=== PATIENT | female | born 1940 | race Caucasian/White ===

== ENCOUNTER 2018-04-12 09:01 | Inpatient (IN) ==
[2018-04-12] MEDS ORDERED: Metoprolol Tartrate 25 MG Tablet PO ONE (10:00)
[2018-04-12] MEDS ORDERED: Chlorhexidine Gluconate 2% 1 Pack (2 Cloths) TOPICAL ONE (10:00)
[2018-04-12] MEDS ORDERED: ceFAZolin 2 GM Premix Inj 2 GM/50 ML PIGGYBACK IV.SIG SCH (10:00)
[2018-04-12] MEDS ORDERED: Chlorhexidine 4% Topical 120 APPLIC/120 ML Bottle TOPICAL SCH (10:00)
[2018-04-12] MEDS ORDERED: Vancomycin Inj 1,000 MG in Sodium Chlor 0.9% Inj 250 ML IV.SIG SCH (10:00)
[2018-04-12] MEDS ORDERED: Sodium Chlor 0.9% Inj 500 ML IV.CONT ONE (10:00)
[2018-04-12] MEDS ORDERED: Sodium Chlor 0.9% Inj 40 ML, Bupivacaine Liposo PF 1.3% Inj 20 ML, Bupivacaine/Epi PF 0... P-ARTICULR SCH ×3 (10:30)
[2018-04-12] MEDS ORDERED: SODIUM CHLOR 0.9% IV.SIG SCH (11:00)
[2018-04-12] MEDS ORDERED: TRANEXAMIC ACID IV.SIG SCH (11:00)
[2018-04-12] MEDS ORDERED: Bupivacaine 0.5% Inj 50 ML MDV Vial ONE (11:05)
[2018-04-12] MEDS ORDERED: ALPRAZolam 0.25 MG Tablet PO PRN (12:25)
[2018-04-12] MEDS ORDERED: Bisacodyl 10 MG Supp RECTAL PRN (12:28)
[2018-04-12] MEDS ORDERED: Post-op Orders (for Pharmacy) OTHER STA (12:28)
[2018-04-12] MEDS ORDERED: Morphine Inj 4 MG/ML Vial IV.PUSH PRN (12:28)
[2018-04-12] MEDS ORDERED: Temazepam 15 MG Capsule PO PRN (12:28)
--- NOTE | 2018-04-12 14:36 | P.OP ---
- Preoperative Diagnosis (1) Osteoarthritis of left knee - Postoperative Diagnosis (1) Osteoarthritis of left knee Date of procedure: 04/12/18 Procedure: Left total knee arthroplasty Anesthesia: local, spinal Surgeon: Herb Mcgee MD Group Product Manager: Olive Driscoll PA-C Operation and Findings: EBL: 100 cc INDICATION: This patient presents with long-standing arthritis of the knee. Attachment record documents conservative measures. The patient now presents for surgical treatment. NOTE: Olive Driscoll PA-C was present for the entire surgical procedure as my office clerk assistant. In my medical opinion her skill and care was necessary for proper management of this patient. TOURNIQUET TIME: 62 minutes COMPANY: [employer] FEMUR: Size 5, posterior stabilized TIBIA: Size 4, fixed-bearing PATELLA: 32 mm POLYETHYLENE INSERT: Posterior stabilized, 10 mm PROCEDURE: This patient was brought the operating room and anesthetized in the supine position. The patient was positioned supine on the table. The tourniquet was placed about the thigh, and the leg was scrubbed with alcohol followed by Hibiclens followed by ChloraPrep and draped sterilely. A timeout was done, and antibiotics were given. After exsanguination the tourniquet was inflated to 250 mmHg. An anterior incision was made and a median parapatellar arthrotomy was performed. The patella was released laterally and subluxed allowing freehand cut of the patella which was then sized. A metal cap was placed over the exposed patellar surface for protection. A ship pilot dispatcher hole was placed in the distal femur allowing a 5 valgus cut removing 10 mm from the distal femur. Anterior posterior and chamfer cuts were made. The posterior stabilize osteotomy was made. The attention was directed to the tibia. Retractors were positioned. The external alignment guide was used allowing the lateral tibia to be used as referencing guide and cut utilizing an oscillating saw taking care to avoid any injury to the surrounding soft tissues. This was sized properly. Trial reduction showed that the insert fit nicely. The patient had range of motion extension 0 flexion []. A medial release was necessary. The bony surfaces prepared. On the back table 2 packets of methylmethacrylate were mixed. The components were cemented. Excess cement was removed. The tourniquet let down and hemostasis was controlled. The final plastic insert was inserted. Range of motion was the same as previously noted. A drain was brought through a separate stab incision. The arthrotomy was repaired with interrupted #1 Vicryl suture, subcutaneous tissue 2-0 Vicryl suture and skin with metallic jacob A sterile dressing was applied. Sponge counts, needle counts and instrument counts were all correct. The patient tolerated procedure well and was taken to recovery in satisfactory condition. FINDINGS: There was severe osteoarthritis of the left knee joint, especially the posterior compartment. There was a large posterior calcified loose body in a synovial pouch likely consistent with a Mike's cyst region. This was opened and this was removed. There is no complication that was appreciated.
--- NOTE | 2018-04-12 14:42 | P.DCO ---
- Physical Therapy Physical Therapy: Gait training (3 times per week for 2 weeks) Knee: Total knee, Protocol: Left, Full weight bearing Canvas Knee Splint: Other (At nighttime for 4 weeks) Left Lower Extremity Weight Bearing: Weight bearing as tolerated - Certification Need for Home Health services: I have seen patient Karen Louis on 04/12/18. My clinical findings support the need for the requested home health care services because: Need for Home Health Services: High risk of falls Homebound Certification: I certify that my clinical findings support that this patient is homebound because: Homebound Certification: Unsteady gait/balance
[2018-04-12] MEDS ORDERED: fentaNYL Citrate Inj 100 MCG/2 ML Ampul ONE (14:59)
[2018-04-12] MEDS ORDERED: *morphine SULFATE 4 MG/ML PERIprocedure ONLY ONE (15:38)
--- NOTE | 2018-04-12 15:50 | XR ---
EXAM DATE: 04/12/2018 3:39 PM EST AGE/SEX: 77 years / Female INDICATIONS: Post op left knee surgery. CLINICAL DATA: This is the patient's initial encounter. Patient reports that signs and symptoms have been present for 1 day and indicates a pain score of 0/10. MEDICAL/SURGICAL HISTORY: None. None. COMPARISON: No prior exams available for comparison. FINDINGS: Patient is status post left total knee arthroplasty with prosthesis in good position. CONCLUSION: Status post left total knee arthroplasty with prosthesis in good position. Electronically signed by: Claudio Carter MD Board Certified Radiologist 04/12/2018 3:48 PM EST
[2018-04-12] MEDS: Montelukast 10 MG Tablet PO SCH (17:45)
[2018-04-12] MEDS: ceFAZolin Inj 1 GM in Sodium Chlor 0.9% Inj 100 ML IV.SIG SCH ×2 (18:01→23:29)
[2018-04-12] MEDS: Multivitamin/Minerals Therapeutic Tablet PO SCH (21:34)
[2018-04-12] MEDS: Senna/Docusate Sodium 8.6/50 MG Tablet PO SCH (21:34)
--- NOTE | 2018-04-12 21:56 | P.DS ---
Date of admission: 04/12/18 09:01 Primary care physician: Jem Ruelas Attending physician on discharge: Herb Mcgee Anticipated date of discharge: 04/13/18 Brief History from admission: Ms. Louis has had ongoing left knee pain for... DS: Diagnosis - Discharge Diagnosis (1) Osteoarthritis of left knee Status: Acute DS: Medications - Discharge Medications Prescriptions: oxycodone-acetaminophen 1 tab PO Q4H PRN #42 tab PRN Reason: Acute Pain DS: Summary - Time Spent with Patient Total time spent providing and/or coordinating discharge services: - Quality: VTE Deep Vein Thrombosis/Pulmonary Embolism Present on Admission: No Exam Vital signs: Vital Signs 04/12/18 09:30 04/12/18 11:12 04/12/18 14:53 Temperature 97.9 F 95.8 F L Pulse Rate 53 L 55 L 54 L Respiratory Rate 20 17 Blood Pressure 121/56 L 102/53 L Pulse Oximetry 99 100 97 04/12/18 14:55 04/12/18 15:00 04/12/18 15:15 Temperature 95.8 F L Pulse Rate 51 L 50 L Respiratory Rate 17 17 Blood Pressure 91/44 L 136/61 Pulse Oximetry 100 100 04/12/18 15:30 04/12/18 15:45 04/12/18 15:52 Temperature 97.3 F L Pulse Rate 51 L 52 L 54 L Respiratory Rate 17 17 17 Blood Pressure 141/63 H 119/58 L Pulse Oximetry 98 97 96 04/12/18 16:00 04/12/18 16:20 04/12/18 16:30 Temperature 97.8 F Pulse Rate 60 56 L Respiratory Rate 17 17 Blood Pressure 106/53 L 112/54 L Pulse Oximetry 97 94 L 04/12/18 17:05 Temperature 97.8 F Pulse Rate 61 Respiratory Rate 17 Blood Pressure 118/58 L Pulse Oximetry 95 Intake & Output 04/12/18 04/12/18 04/13/18 06:59 18:59 06:59 Intake Total 2207.15 / 2207.15 Output Total 100 / 100 Balance 2107.15 / 2107.15 Weight 75.3 kg Intake: IV 1407.15 / 1407.15 LR 1000 mL Inj 1,000 ML @ 30 1000 / 1000 mls/hr IV.CONT .Q24H [facility] Rx#: [id number] Cyklokapron Inj 715 MG In NS 107.15 / 107.15 Inj 100 ML @ 200 mls/hr IV.SIG THERMAL CUTTING TRACER MACHINE OPERATOR [facility] Rx#:[id number] Vancomycin Inj 1,000 MG In NS 250 / 250 Inj 250 ML @ 250 mls/hr IV.SIG THERMAL CUTTING TRACER MACHINE OPERATOR [facility] Rx#:[id number] Ancef 2 GM Premix Inj 2 gm In 50 / 50 50 ml @ 100 mls/hr IV.SIG THERMAL CUTTING TRACER MACHINE OPERATOR [facility] Rx#:[id number] Anesthesia Amount 800 / 800 Output: Estimated Blood Loss 100 / 100 Other: Weight On Admission 71.5 kg Results Procedures completed during hospitalization: Left total knee arthroplasty Labs on day of discharge: Labs from last 24 hours 04/12/18 09:55 Blood Type O Positive Blood Type Recheck Required Antibody Screen Negative - Impressions ITS Impressions Knee X-Ray 04/12/18 12:28 CONCLUSION: Status post left total knee arthroplasty with prosthesis in good position. Discharge Plan - Discharge Disposition Patient Disposition: Discharge Home - Discharge Condition Condition: Good - Discharge Order Discharge Orders: Discharge Order (Routine); Ordered 04/13/18 Ordered By: Herb Mcgee - Physicians Team Primary Care Provider: Jem Ruelas Attending Provider: Herb Mcgee - Rxs /Orders / Referrals /Forms Prescriptions: New aspirin 81 mg Tablet,Chewable 81 mg PO BID 30 Days Qty: 60 RF: 0 oxycodone-acetaminophen 5-325 mg Tablet 1 tab PO Q4H PRN (Reason: Acute Pain) Qty: 42 RF: 0 Continue acetaminophen [Acetaminophen Extra Strength] 500 mg Tablet 500 mg PO Q6H PRN (Reason: Pain) alprazolam 0.25 mg Tablet 0.25 mg PO DAILY PRN (Reason: Anxiety) atorvastatin 10 mg Tablet 10 mg PO DAILY B-complex with vitamin C [Super B Complex-Vitamin C] Tablet 1 tab PO DAILY calcium carbonate [Antacid Calcium] 215 mg calcium (500 mg) Tablet,Chewable 215 mg PO BID cholecalciferol (vitamin D3) [Vitamin D3] 1,000 unit Tablet 1,000 unit PO DAILY glucosamine-chondroitin 500-400 mg Capsule 1 cap PO BID levothyroxine 100 mcg Tablet 100 mcg PO DAILY loratadine 10 mg Tablet 10 mg PO DAILY meloxicam 7.5 mg Tablet 7.5 mg PO DAILY montelukast 10 mg Tablet 10 mg PO QPM omega 5-gzq-jwl-fish oil [Fish Oil] 1,000 mg (120 mg-180 mg) Capsule 1 cap PO BID vit C,O-Zf-sgxfy-lutein-zeaxan [PreserVision AREDS-2] [id number] mg-unit-mg -mg Capsule 1 tab PO QAM AND QHS Ambulatory Orders / Order Sets / DME: Adjustable Commode 3-in-1 (1 each) (Routine) Location: Determined by Patient Ordered By: Herb Mcgee Walker With Front Wheels (1 each) (Routine) Location: Determined by Patient Ordered By: Herb Mcgee Referrals: Jem Ruelas M.D. [Primary Care Provider] - See Instructions - Discharge Instructions Patient Printed Instructions: Knee Replacement (DC) - Post Discharge Care Plan Care Plan Goals: Discharge Care Plan Goals for LEFT Total Knee Replacement You have undergone knee replacement surgery. Your doctor replaced your painful joint with an artificial joint to relieve pain and restore movement. Here are some goals to help you heal well. Directions to Meet your Goals: 1. Activity & Exercises: * Take pain medicine as directed by your doctor. * Sit in chairs with arms. The arms make it easier for you to stand up or sit down. * Dont sit for more than 30 to 45 minutes at one time. * Nap if you are tired, but dont stay in bed all day. * Sleep with a pillow under your ankle, not your knee. Be sure to change the position of your leg during the night. * Wear the support stockings you were given in the hospital as directed by your surgeon. 2. Prevent Falls/Injury: The hart to successful recovery is movement with walking and exercising your knee as directed by your doctor. * Arrange your household to keep the items you need handy. Keep everything else out of the way. * Remove items that may cause you to fall, such as throw rugs and electrical cords. * Use nonslip bath mats, grab bars, an elevated toilet seat, and a shower chair in your bathroom * Sit on a shower stool or chair when you shower to keep from falling. * Until your balance, flexibility, and strength improve, use a cane, crutches, a walker, handrails, or someone to help you. * Keep your hands free by using a backpack, stephany pack, apron, or pockets to carry things * Walk up and down stairs with support. Try one step at a time. Use the railing if possible. * Dont drive until your doctor says its OK. * Dont drive while you are taking opioid pain medicine. 3. Precautions: * Prevent infection. Any infection will need to be treated immediately. Call your doctor right away if you think you might have an infection. * Tell your dentist that you have an artificial joint and take antibiotics as prescribed before any dental work. * Tell all your healthcare providers about your artificial joint before any medical procedure. * Maintain a healthy weight. Get help to lose any extra pounds. Added body weight puts stress on the knee. * Your medications may include blood-thinning medicine to prevent blood clots or antibiotics to prevent infection-prevent any falls or cuts 4. Incision Care: * Prevent infection by washing your hands often. If an infection occurs, it will need to be treated right away. * Call your doctor right away if you think you may have an infection. Symptoms include a fever or an incision that leaks white, green, or yellow fluid. * Don't soak your incision in water until your doctor says its OK. This means no hot tubs, bathtubs, or swimming pools. * Follow your doctor's instructions for changing the dressing. * Dont rub the incision, or apply creams or lotions to it. * If you notice any redness or drainage around the bandage site, contact your surgeon's office immediately. 5. Follow-Up: Do Not miss your follow-up appointment. Keep up with all your appointments and yearly check ups When to call your doctor: Call your doctor right away if you have: Fever of 100.4F (38C) or higher, or as directed by your doctor Shaking chills Stiffness, or inability to move the knee Increased swelling in your leg Increased redness, tenderness, or swelling in or around the knee incision Drainage from the knee incision Increased knee pain Call 911: Call 911 right away if you have: Chest pain Shortness of breath Any pain or tenderness in your calf
[2018-04-13 03:56] LABS: Hematocrit 32.5 % (35.0-46.0); Hemoglobin 11.3 gm/dL (11.6-15.3)
[2018-04-13] MEDS: ceFAZolin Inj 1 GM in Sodium Chlor 0.9% Inj 100 ML IV.SIG SCH (05:00)
[2018-04-13] MEDS: Levothyroxine 100 MCG Tablet PO SCH (05:31)
[2018-04-13] MEDS: Senna/Docusate Sodium 8.6/50 MG Tablet PO SCH ×3 (07:12→21:27)
[2018-04-13] MEDS: Loratadine 10 MG Tablet PO SCH ×2 (07:13→13:56)
[2018-04-13] MEDS: Multivitamin/Minerals Therapeutic Tablet PO SCH ×3 (07:13→21:26)
--- NOTE | 2018-04-13 13:50 | P.PNOP ---
Subjective Interval history: She is doing as expected. Patient states she has moderate pain but 'nothing unexpected'. She has some nausea but it is not severe. She has been given zofran. No other concerns. She is ready for discharge. Physical Exam Vital signs: Vital Signs 04/12/18 14:53 04/12/18 14:55 04/12/18 15:00 Temperature 95.8 F L 95.8 F L Pulse Rate 54 L 51 L Respiratory Rate 17 17 Blood Pressure 102/53 L 91/44 L Pulse Oximetry 97 100 04/12/18 15:15 04/12/18 15:30 04/12/18 15:45 Temperature Pulse Rate 50 L 51 L 52 L Respiratory Rate 17 17 17 Blood Pressure 136/61 141/63 H Pulse Oximetry 100 98 97 04/12/18 15:52 04/12/18 16:00 04/12/18 16:20 Temperature 97.3 F L 97.8 F Pulse Rate 54 L 60 Respiratory Rate 17 17 Blood Pressure 119/58 L 106/53 L Pulse Oximetry 96 97 04/12/18 16:30 04/12/18 17:05 04/12/18 19:57 Temperature 97.8 F 98.0 F Pulse Rate 56 L 61 61 Respiratory Rate 17 17 18 Blood Pressure 112/54 L 118/58 L 134/60 Pulse Oximetry 94 L 95 97 04/13/18 00:49 04/13/18 05:26 04/13/18 08:00 Temperature 97.5 F L 98.4 F 98 F Pulse Rate 66 65 57 L Respiratory Rate 18 17 18 Blood Pressure 122/72 115/57 L 116/52 L Pulse Oximetry 96 95 97 04/13/18 12:00 Temperature 97.4 F L Pulse Rate 69 Respiratory Rate 18 Blood Pressure 142/63 H Pulse Oximetry 96 Intake & Output 04/12/18 04/13/18 04/13/18 18:59 06:59 18:59 Intake Total 2307.15 / 2307.15 2440 / 2440 Output Total 100 / 100 Balance 2207.15 / 2207.15 2440 / 2440 Weight 75.3 kg 74.2 kg Intake: IV 1507.15 / 1507.15 1200 / 1200 LR 1000 mL Inj 1,000 ML @ 80 1000 / 1000 1000 / 1000 mls/hr IV.CONT .[id number] [facility] Rx# :[id number] Cyklokapron Inj 715 MG In NS 107.15 / 107.15 Inj 100 ML @ 200 mls/hr IV.SIG GASTROENTEROLOGY TECHNICIAN [facility] Rx#:[id number] Vancomycin Inj 1,000 MG In NS 250 / 250 Inj 250 ML @ 250 mls/hr IV.SIG GASTROENTEROLOGY TECHNICIAN [facility] Rx#:[id number] Ancef 2 GM Premix Inj 2 gm In 50 / 50 50 ml @ 100 mls/hr IV.SIG GASTROENTEROLOGY TECHNICIAN [facility] Rx#:[id number] Ancef Inj 1 GM In NS Inj 100 ML 100 / 100 200 / 200 @ 200 mls/hr IV.SIG Q6H [facility] Rx #:[id number] Oral 1240 / 1240 Anesthesia Amount 800 / 800 Output: Estimated Blood Loss 100 / 100 Other: # Voids 5 # Bowel Movements 0 Weight On Admission 71.5 kg Narrative: Sitting up in bed NAD WIth her family member LLE Dressing intact, minimal SS drainage, mild swelling, no erythema +motor at, +sens, +nvi Neg homans - Constitutional no acute distress Results - Labs CBC & Chem 7: 04/13/18 03:47 Laboratory Results - last 24 hr 04/13/18 03:47 Hgb 11.3 L Hct 32.5 L - Imaging Impressions Knee X-Ray 04/12/18 12:28 CONCLUSION: Status post left total knee arthroplasty with prosthesis in good position. - Procedures Left total knee arthroplasty Assessment and Plan - Ortho Post Op Day # 1 - Problem List (1) Osteoarthritis of left knee Code(s): M17.12 - Unilateral primary osteoarthritis, left knee Status: Acute - Assessment and Plan pod#1 s/p L TKA Ortho stable. Pain controlled. Mild nausea. Ok to d/c home today after PT class. Home PT 3-4 times a week. PO pain meds as needed. ASA 81mg. Hold dressing changes unless saturated. Cover when showering. Ice bid. Compression stocking for 2 weeks. Follow up in 2 weeks as scheduled.
[2018-04-13] MEDS: Meloxicam 7.5 MG Tablet PO SCH (13:56)
[2018-04-13] MEDS: Montelukast 10 MG Tablet PO SCH (19:09)
[2018-04-13] MEDS: Acetaminophen 325 MG Tablet PO PRN ×2 (19:11→22:26)
[2018-04-14] MEDS: Acetaminophen 325 MG Tablet PO PRN ×2 (03:42→08:18)
[2018-04-14] MEDS: Levothyroxine 100 MCG Tablet PO SCH (05:12)
[2018-04-14 06:43] VITALS: O2SAT 95
[2018-04-14] MEDS: Loratadine 10 MG Tablet PO SCH (08:18)
[2018-04-14] MEDS: Multivitamin/Minerals Therapeutic Tablet PO SCH (08:19)
[2018-04-14] MEDS: Meloxicam 7.5 MG Tablet PO SCH (08:20)
[2018-04-14 08:22] VITALS: BP 114/60; PULSE 68; RESP 18; TEMP 97.6
[2018-04-14] MEDS: Senna/Docusate Sodium 8.6/50 MG Tablet PO SCH (08:23)
--- NOTE | 2018-04-14 08:44 | P.PNOP ---
Subjective Interval history: Doing well. Feels much better today than yesterday or last night Physical Exam Vital signs: Vital Signs 04/13/18 11:36 04/13/18 12:00 04/13/18 21:20 Temperature 97.4 F L 97.6 F Pulse Rate 69 71 Respiratory Rate 18 18 18 Blood Pressure 142/63 H 151/65 H Pulse Oximetry 96 95 04/14/18 01:45 04/14/18 04:55 04/14/18 08:00 Temperature 97.8 F 98.8 F 97.6 F Pulse Rate 75 73 68 Respiratory Rate 17 17 18 Blood Pressure 146/61 H 135/62 114/60 Pulse Oximetry 96 95 95 Intake & Output 04/13/18 04/14/18 04/14/18 18:59 06:59 18:59 Intake Total 1000 / 1000 900 / 900 Balance 1000 / 1000 900 / 900 Weight 74.2 kg Intake: IV 1000 / 1000 LR 1000 mL Inj 1,000 ML @ 80 1000 / 1000 mls/hr IV.CONT .[id number] [facility] Rx# :[id number] Oral 900 / 900 Other: # Voids 5 4 Date of Last Bowel Movement 04/11/18 # Bowel Movements 0 Narrative: Sitting up in bed NAD WIth her family member LLE Dressing intact, minimal SS drainage, mild swelling, no erythema +motor at, +sens, +nvi Neg homans Results - Labs CBC & Chem 7: 04/13/18 03:47 - Procedures Left total knee arthroplasty Assessment and Plan - Problem List (1) Osteoarthritis of left knee Code(s): M17.12 - Unilateral primary osteoarthritis, left knee Status: Acute - Assessment and Plan pod#1 s/p L TKA Ortho stable. Pain controlled. No nausea. Ok to d/c home today Home PT 3 times a week. PO pain meds as needed. ASA 81mg. Hold dressing changes unless saturated. Cover when showering. Ice bid. Compression stocking for 2 weeks. Follow up in 2 weeks as scheduled.
== END 2018-04-14 08:52 | disposition home or self-care (01) | DRG 470 ==
LOC: HSDI 09:01 → N06 17:37
PROVIDERS: ADMIT Orthopaedic Surgery Orthopaedic Surgery of the Spine; ATTEND Orthopaedic Surgery Orthopaedic Surgery of the Spine
CPT/HCPCS: 73560; 85014; 85018; 86850; 86900; 86901; 94150; 97110; 97116; 97150; 97163; C1776; C9290; J0690; J2250; J2270; J2405; J2795; J3010; J3370; J7120; L1830